=== PATIENT | female | born 1980 ===

== ENCOUNTER → 2023-05-30 | Outpatient (CLI) | payer SELFPAY ==
[2023-05-30 20:44] LABS: Candida species (DNA Probe) Negative (NEGATIVE); G. vaginalis (DNA Probe) Positive (NEGATIVE); T. vaginalis (DNA Probe) Negative (NEGATIVE)
[2023-06-01 22:06] LABS: CHLAMYDIA TRACHOMATIS, NAA Negative (Negative)
== END ==
LOC: LAB 11:55 → LAB SHORT 11:55
PROVIDERS: Physician Assistant
DX: N34.2 Other urethritis (principal)
CPT/HCPCS: 87480; 87491; 87510; 87591; 87660